=== PATIENT | male | born 1965 | race Caucasian/White ===

== ENCOUNTER 2017-11-10 13:18 | Inpatient (IN) ==
[2017-11-10] MEDS ORDERED: Nitroglycerin 1 INCH/GM PACKET TP ONE (13:23)
[2017-11-10] MEDS ORDERED: Aspirin 81 MG TAB.CHEW PO ONE (13:23)
--- NOTE | 2017-11-10 13:31 | Emergency Department Note ---
Disposition Clinical Impression: Atypical chest pain, Stable angina Disposition: Admitted As Inpatient Condition: Good Time of Disposition: 15:27 ( will admit) Chest Pain HPI - General Chief Complaint: ED Chest Pain Stated Complaint: chest pain Time Seen by Provider: 11/10/17 13:29 Source: patient, EMS Mode of arrival: EMS Limitations: no limitations Vital Signs Reviewed: Yes Nursing Notes Reviewed: Yes - History of Present Illness HPI Narrative: The 2-year-old male presented to the emergency department by EMS with complaints of pain localized to the left side of the chest. Patient had taken already 5 sublingual nitroglycerin prior to EMS arrival. He states that after he awakened today he began having substernal chest pain. Patient has known coronary disease and has had prior cardiac stent placement, done in [place] 2 years ago. Patient is on Plavix. He also has history of hypertension and hyperlipidemia. Pt complaint: chest pain Duration: intermittent Onset: during rest Pain Location: substernal, left chest Severity: severe Severity scale (1-10): 9 Quality: heaviness Pain Radiation: jaw/teeth Improves with: nothing Worsens with: exertion Associated symptoms: Reports: nausea Treatments prior to arrival chest pain: aspirin, nitroglycerin, oxygen - Related Data Home Medications Medication Instructions Recorded Confirmed Clopidogrel [Plavix] 75 mg PO DAILY 12/23/14 11/10/17 FLUoxetine HCl [Prozac] 20 mg PO DAILY 01/28/15 11/10/17 Metoprolol [Lopressor] 50 mg PO BID 01/28/15 11/10/17 Gabapentin [Neurontin] 800 mg PO TID 04/24/15 11/10/17 [place] Carbonate 300 mg PO HS 07/25/15 11/10/17 DULoxetine [Cymbalta] 60 mg PO DAILY 09/17/15 11/10/17 Furosemide [Lasix] 20 mg PO DAILY 10/02/15 11/10/17 ALPRAZolam [Xanax 0.5 MG Tablet] 0.5 mg PO Q6HR PRN 12/04/15 11/10/17 Albuterol Sulfate [Ventolin Hfa] 2 puff IH Q4H PRN 06/02/16 11/10/17 Docusate Sodium [Move It Along] 100 mg PO BID PRN 06/02/16 11/10/17 FentaNYL PATCH [Duragesic] 25 mcg TD Q72H 09/11/16 11/10/17 Menthol [Biofreeze] 1 appl TP BID PRN MDD apply to 09/11/16 11/04/16 shoulders Nitroglycerin [Nitrostat] 0.4 mg SL Q5M PRN 09/11/16 11/10/17 Fluticasone/Vilanterol [Breo 1 each IH HS 11/04/16 11/10/17 Ellipta 100-25 Mcg INH] Oxycodone HCl [Oxaydo] 10 mg PO Q6H PRN 11/04/16 11/10/17 Acetylcysteine [Nac] 500 mg PO Q6H 11/10/17 11/10/17 Diclofenac Sodium 100 gm TP BID PRN 11/10/17 11/10/17 Famotidine [Heartburn Prevention] 20 mg PO DAILY 11/10/17 11/10/17 Oxybutynin Chloride [Ditropan Xl] 5 mg PO DAILY 11/10/17 11/10/17 Previous Rx's Medication Instructions Recorded Atorvastatin [Lipitor] 40 mg PO HS #90 tablet 12/26/14 lamoTRIgine [Lamictal] 200 mg PO HS tablet 05/31/15 OxyCODONE/APAP 5/325 [Percocet 1 - 2 each PO Q6HR PRN #40 11/03/16 5/325 MG] Allergies Allergy/AdvReac Type Severity Reaction Status Date / Time simvastatin AdvReac See Verified 11/10/17 13:20 Comments Constitutional: Denies: fever, chills, weakness, weight change Eyes: Denies: eye pain, eye discharge, vision change ENT ED: Denies: ear pain, throat pain, dental pain, hearing loss, epistaxis, congestion, dysphagia Cardiovascular: Reports: chest pain. Denies: palpitations, dyspnea on exertion , edema, syncope Respiratory: Denies: cough, dyspnea, wheezes, hemoptysis, stridor Gastrointestinal: Denies: abdominal pain, nausea, vomiting, diarrhea, constipation, hematemesis, melena, hematochezia Genitourinary: Denies: urgency, dysuria, frequency, hematuria Musculoskeletal: Denies: back pain, neck pain, arthralgia, myalgia Integumentary: Denies: rash, abrasion, lesions Neurological: Denies: headache, weakness, numbness, paresthesias, confusion, abnormal gait, vertigo Psychiatric: Denies: anxiety, depression, suicidal thoughts, homicidal thoughts , auditory hallucinations, visual hallucinations Endocrine: Denies: fatigue Hematological/Lymphatic: Denies: easy bleeding, easy bruising Allergic/Immunologic: Denies: facial swelling, urticaria Chest Pain PMH - Past Medical History Medical history: Reports: asthma, atrial fibrillation, COPD, hyperlipidemia, hypertension, myocardial infarction, other Surgical history: Reports: other Psychiatric history: Reports: anxiety, depression, prior suicide attempt, previous psychiatric hospitalization Prior Cardiac Testing/Procedures: Cardiac Angiogram (12/[address] [facility] showing patent arteries and ejection fraction 55%) - Social History Smoking Status: Current every day smoker Alcohol use: Reports: none Drug use: Reports: none Physical Exam - General Limitations: no limitations General appearance: alert - Head Head exam: atraumatic, normocephalic, normal inspection - Eye Eye exam: Present: normal appearance, PERRL, EOMI - Expanded Eye Exam Pupils: Left: reactive - ENT ENT exam: normal exam, normal oropharynx, mucous membranes moist - Expanded ENT Exam External ear exam: Present: normal external inspection Mouth exam: Present: normal external inspection Teeth exam: Present: normal inspection Throat exam: Present: normal inspection - Neck Neck exam: Present: normal inspection, full ROM, trachea midline - Chest Chest inspection: Present: tenderness, other (Patient has some mild tenderness to palpation over the anterior chest wall on the left side) - Respiratory Respiratory exam: Present: normal lung sounds bilaterally - Cardiovascular Cardiovascular exam: Present: regular rate, normal rhythm, normal heart sounds - Abdominal Exam Abdominal exam: Present: soft, Non-Tender. Absent: tenderness, distention, guarding, rebound, rigidity - Extremities Exam Extremities exam: Present: normal inspection, full ROM. Absent: tenderness, pedal edema - Expanded Upper Extremity Exam Shoulder exam: Present: normal inspection, full ROM Arm exam: Present: normal inspection, full ROM Elbow exam: Present: normal inspection, full ROM Forearm/Wrist exam: Present: normal inspection, full ROM Hand exam: Present: normal inspection, full ROM Vascular exam: Normal: capillary refill, radial pulse - Expanded Lower Extremity Exam Hip/Pelvis exam: Present: normal inspection, full ROM Upper leg exam: Present: normal inspection, full ROM Knee exam: Present: normal inspection, full ROM Lower leg exam: Present: normal inspection, full ROM Ankle exam: Present: normal inspection, full ROM Foot/toe exam: Present: normal inspection, full ROM Neurovascular/Tendon exam: Absent: motor deficit, sensory deficit, tendon deficit - Back Exam Back exam: Present: normal inspection, full ROM. Absent: tenderness - Neurological Exam Neurological exam: Present: alert, oriented X3 - Expanded Neurological Exam Patient oriented to: Present: person, place, time Coma Scale Eye Opening: Spontaneous Coma Scale Motor Response: Obeys Commands Coma Scale Verbal Response: Oriented Coma Scale Total: 15 - Psychiatric Psychiatric exam: Present: normal affect, normal mood - Skin Skin exam: Present: warm, dry, intact, normal color Course Vital Signs Temperature 97.9 F 11/10/17 13:20 Pulse Rate 91 11/10/17 13:20 Respiratory Rate 18 11/10/17 13:20 Blood Pressure 121/66 11/10/17 13:20 O2 Sat by Pulse Oximetry 99 11/10/17 13:20 Temperature 97.9 F 11/10/17 13:20 Pulse Rate 60 11/10/17 14:50 Respiratory Rate 18 11/10/17 14:50 Blood Pressure 124/76 11/10/17 14:50 O2 Sat by Pulse Oximetry 99 11/10/17 14:50 Oxygen Delivery Oxygen Delivery Room Air Chest Pain - MDM Narrative Medical decision making narrative: Due to patient's cardiac history, we will admit the patient for overnight observation , laboratory including EKG and chest x-ray shows no acute process. - Differential Diagnosis Likely: fracture of rib, unstable angina pectoris, atypical chest pain, st elevation myocardial infraction, costalchondritis - Medical Records Medical records reviewed: Yes I reviewed the patient's medical records. - Lab Data Lab results reviewed: Yes I reviewed the patient's lab results. Result diagrams: 11/10/17 13:35 11/10/17 13:35 Lab Results 11/10/17 11/10/17 11/10/17 Range/Units 13:35 13:35 13:35 WBC (4.3-11.1) K/mcL RBC (4.19-5.50) M/mcL Hgb (12.9-16.9) g/dL Hct (37.5-50.1) % MCV (83.0-100.0) fL MCH (28.0-33.3) pg MCHC (31.6-35.5) g/dL RDW (11.5-14.5) % Plt Count (140-400) K/mcL MPV (9.4-12.4) fL Immature Gran % (0-4) % Seg Neutrophils % % Lymphocytes % % Monocytes % % Eosinophils % % Basophils % % Neutrophils # (1.6-8.9) K/mcL Lymphocytes # (0.6-4.6) K/mcL Monocytes # (0.0-1.3) K/mcL Eosinophils # (0.0-0.6) K/mcL Basophils # (0.0-0.2) K/mcL PT 14.9 H (9.4-12.1) Seconds INR 1.3 APTT 39.0 H (26.0-36.0) Seconds D-Dimer 743 H (0-500) ng/mLFEU Sodium (136-145) mEq/L Potassium (3.5-5.1) mEq/L Chloride (98-107) mEq/L Carbon Dioxide (23-29) mEq/L BUN (6-20) mg/dL Creatinine (0.70-1.30) mg/dL Est GFR ( Amer) (> 60) Est GFR (Non-Af Amer) (> 60) BUN/Creatinine Ratio (6-26) Glucose (70-105) mg/dL Calculated Osmolality (280-300) Calcium (8.6-10.3) mg/dL Total Bilirubin 0.5 (0.3-1.0) mg/dL Direct Bilirubin 0.1 (0.0-0.2) mg/dL Indirect Bilirubin 0.4 (0.0-1.2) mg/dL AST 14 (13-39) Units/L ALT 15 (7-52) Units/L Alkaline Phosphatase 133 H (34-104) Units/L Troponin I (< 0.04) ng/mL B-Natriuretic Peptide 83 (Less than 100) pg/mL Serum Total Protein 7.4 (6.4-8.9) g/dL Albumin 4.2 (3.5-5.7) g/dL Globulin 3.2 (2.4-3.5) g/dL Albumin/Globulin Ratio 1.3 (1.1-2.2) Amylase 39 (29-103) Units/L Lipase (11-82) Units/L 11/10/17 11/10/17 11/10/17 Range/Units 13:35 13:35 13:35 WBC 10.3 (4.3-11.1) K/mcL RBC 4.54 (4.19-5.50) M/mcL Hgb 15.5 (12.9-16.9) g/dL Hct 44.4 (37.5-50.1) % MCV 97.8 (83.0-100.0) fL MCH 34.1 H (28.0-33.3) pg MCHC 34.9 (31.6-35.5) g/dL RDW 12.9 (11.5-14.5) % Plt Count 207 (140-400) K/mcL MPV 9.0 L (9.4-12.4) fL Immature Gran % 0.3 (0-4) % Seg Neutrophils % 62.5 % Lymphocytes % 28.0 % Monocytes % 6.1 % Eosinophils % 2.7 % Basophils % 0.4 % Neutrophils # 6.4 (1.6-8.9) K/mcL Lymphocytes # 2.9 (0.6-4.6) K/mcL Monocytes # 0.6 (0.0-1.3) K/mcL Eosinophils # 0.3 (0.0-0.6) K/mcL Basophils # 0.0 (0.0-0.2) K/mcL PT (9.4-12.1) Seconds INR APTT (26.0-36.0) Seconds D-Dimer (0-500) ng/mLFEU Sodium 140 (136-145) mEq/L Potassium 3.8 (3.5-5.1) mEq/L Chloride 107 (98-107) mEq/L Carbon Dioxide 24 (23-29) mEq/L BUN 8 (6-20) mg/dL Creatinine 1.12 (0.70-1.30) mg/dL Est GFR ( Amer) > 60 (> 60) Est GFR (Non-Af Amer) > 60 (> 60) BUN/Creatinine Ratio 7 (6-26) Glucose 98 (70-105) mg/dL Calculated Osmolality 288 (280-300) Calcium 9.8 (8.6-10.3) mg/dL Total Bilirubin (0.3-1.0) mg/dL Direct Bilirubin (0.0-0.2) mg/dL Indirect Bilirubin (0.0-1.2) mg/dL AST (13-39) Units/L ALT (7-52) Units/L Alkaline Phosphatase (34-104) Units/L Troponin I < 0.03 (< 0.04) ng/mL B-Natriuretic Peptide (Less than 100) pg/mL Serum Total Protein (6.4-8.9) g/dL Albumin (3.5-5.7) g/dL Globulin (2.4-3.5) g/dL Albumin/Globulin Ratio (1.1-2.2) Amylase (29-103) Units/L Lipase 50 (11-82) Units/L - Radiology Data Radiology results reviewed: Yes I reviewed the patient's radiology results. Chest x-ray per radiology reading showed early pulmonary edema CTA of the chest per radiology reading shows no acute process. Since patient's BNP level is normal I suspect that the area of scarring is most likely related the patient's long-standing history of COPD and not pulmonary edema or CHF. - EKG Data EKG attestation: Yes I reviewed and interpreted this EKG. EKG results narrative: EKG is a normal sinus rhythm EKG with minimal ST-T wave flattening across leads V2 and V3 EKG shows normal: sinus rhythm Rate: normal Rhythm: NSR [place]/QRS: normal
[2017-11-10 13:49] LABS: Basophils % 0.4 %; Eosinophils # 0.3 K/mcL (0.0-0.6); Eosinophils % 2.7 %; Hematocrit 44.4 % (37.5-50.1); Hemoglobin 15.5 g/dL (12.9-16.9); Immature Granulocytes % 0.3 % (0-4); Lymphocytes # 2.9 K/mcL (0.6-4.6); Mean Corpuscular HGB Conc 34.9 g/dL (31.6-35.5); Mean Corpuscular Hemoglobin 34.1 pg (28.0-33.3); Mean Corpuscular Volume 97.8 fL (83.0-100.0); Monocytes # 0.6 K/mcL (0.0-1.3); Monocytes % 6.1 %; Neutrophils # 6.4 K/mcL (1.6-8.9); Platelet Count 207 K/mcL (140-400); Red Blood Count 4.54 M/mcL (4.19-5.50); Red Cell Distribution Width 12.9 % (11.5-14.5); Segmented Neutrophils % 62.5 %
[2017-11-10 13:55] LABS: INR 1.3; Prothrombin Time 14.9 Seconds (9.4-12.1)
[2017-11-10] MEDS ORDERED: Isovue-370 500 ML INFUS..BTL IV ONE ×2 (13:59→16:03)
[2017-11-10 14:05] LABS: Albumin 4.2 g/dL (3.5-5.7); Albumin/Globulin Ratio 1.3 (1.1-2.2); Bilirubin,Direct 0.1 mg/dL (0.0-0.2); Bilirubin,Indirect 0.4 mg/dL (0.0-1.2); Bilirubin,Total 0.5 mg/dL (0.3-1.0); Globulin 3.2 g/dL (2.4-3.5); Total Protein 7.4 g/dL (6.4-8.9)
[2017-11-10 14:06] LABS: BUN/Creatinine Ratio 7 (6-26); Blood Urea Nitrogen 8 mg/dL (6-20); Calcium 9.8 mg/dL (8.6-10.3); Carbon Dioxide 24 mEq/L (23-29); Chloride 107 mEq/L (98-107); Glucose 98 mg/dL (70-105); Osmolality,Calculated 288 (280-300); Potassium 3.8 mEq/L (3.5-5.1); Sodium 140 mEq/L (136-145); Troponin I < 0.03 ng/mL (< 0.04); eGFR For African Americans > 60 (> 60); eGFR For Non-African Americans > 60 (> 60)
[2017-11-10] MEDS ORDERED: Nitroglycerin 0.4 MG TAB.SUBL SL PRN (16:03)
[2017-11-10] MEDS ORDERED: BIOFREEZE TP PRN (16:03)
[2017-11-10] MEDS ORDERED: *HR* FentaNYL PATCH 25 MCG PATCH TD SCH (16:03)
[2017-11-10] MEDS ORDERED: DICLOFENAC SODIUM 100 GM TP PRN (16:03)
[2017-11-10] MEDS: *HR* OxyCODONE Immed Rel 5 MG TABLET PO PRN (16:57)
--- NOTE | 2017-11-10 17:09 | Electrocardiograph Report ---
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
[2017-11-10] MEDS ORDERED: (Fluticasone/Vilanterol [Breo Ellipta 100-25 Mcg Inh] IH SCH (21:00)
[2017-11-10] MEDS ORDERED: lamoTRIgine 100 MG TABLET PO SCH (21:00)
[2017-11-10] MEDS ORDERED: Lithium Carbonate 300 MG CAPSULE PO SCH (21:00)
[2017-11-10] MEDS: Gabapentin 400 MG CAPSULE PO SCH (21:47)
[2017-11-11] MEDS: ALPRAZolam 0.5 MG TABLET PO PRN ×2 (00:48→09:08)
[2017-11-11] MEDS: *HR* OxyCODONE Immed Rel 5 MG TABLET PO PRN ×2 (00:49→09:01)
[2017-11-11] MEDS ORDERED: Famotidine 20 MG TABLET PO SCH (09:00)
[2017-11-11] MEDS ORDERED: FLUoxetine 20 MG CAPSULE PO SCH (09:00)
[2017-11-11] MEDS ORDERED: Furosemide 20 MG TABLET PO SCH (09:00)
[2017-11-11] MEDS: Gabapentin 400 MG CAPSULE PO SCH (09:02)
[2017-11-11 10:29] VITALS: BP 94/53
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
--- NOTE | 2017-11-11 12:12 | Discharge Summary ---
Date of Encounter: 11/11/17 Time of Encounter: 11:30 - Discharge Diagnosis (1) Atypical chest pain Priority: Primary Status: Acute Hospital course: Mr. Coles is a 52 year old male who states he awakened approximately 0200 the morning of November 10 with a sharp chest pain and heaviness sensation in his left arm. When it did not resolve he took a sublingual nitroglycerin without relief. He took 4 additional nitroglycerin pills without relief. His home health nurse arrived and learned of his situation and recommended he come to emergency room. He was evaluated in emergency room and admitted to [facility] for ongoing care needs. Initial orders were written by the emergency room physician. I saw him on November 11 and performed a history physical and discharge. Repeat cardiac enzymes showed no evidence of myocardial damage. When I saw him I felt the pain was likely costosternal joint origin. I recommended he use OTC NSAIDs. He felt stable for discharge home which I felt was reasonable. I encouraged him to become a nonsmoker. He will follow with his PCP Manisha Zayas CNP within 1 week. - Time Spent with Patient Total time spent providing and/or coordinating discharge services: - Discharge Medications Home Medications: Clopidogrel [Plavix] 75 mg PO DAILY 12/23/14 [History] Atorvastatin [Lipitor] 40 mg PO HS #90 tablet 12/26/14 [Rx] FLUoxetine HCl [Prozac] 20 mg PO DAILY 01/28/15 [History] Metoprolol [Lopressor] 50 mg PO BID 01/28/15 [History] Gabapentin [Neurontin] 800 mg PO TID 04/24/15 [History] lamoTRIgine [Lamictal] 200 mg PO HS tablet 05/31/15 [Rx] [place] Carbonate 300 mg PO HS 07/25/15 [History] DULoxetine [Cymbalta] 60 mg PO DAILY 09/17/15 [History] Furosemide [Lasix] 20 mg PO DAILY 10/02/15 [History] ALPRAZolam [Xanax 0.5 MG Tablet] 0.5 mg PO Q6HR PRN 12/04/15 [History] Albuterol Sulfate [Ventolin Hfa] 2 puff IH Q4H PRN 06/02/16 [History] Docusate Sodium [Move It Along] 100 mg PO BID PRN 06/02/16 [History] FentaNYL PATCH [Duragesic] 25 mcg TD Q72H 09/11/16 [History] Menthol [Biofreeze] 1 appl TP BID PRN MDD apply to shoulders 09/11/16 [History] Nitroglycerin [Nitrostat] 0.4 mg SL Q5M PRN 09/11/16 [History] OxyCODONE/APAP 5/325 [Percocet 5/325 MG] 1 - 2 each PO Q6HR PRN #40 11/03/16 [Rx ] Fluticasone/Vilanterol [Breo Ellipta 100-25 Mcg INH] 1 each IH HS 11/04/16 [ History] Oxycodone HCl [Oxaydo] 10 mg PO Q6H PRN 11/04/16 [History] Acetylcysteine [Nac] 500 mg PO Q6H 11/10/17 [History] Diclofenac Sodium 100 gm TP BID PRN 11/10/17 [History] Famotidine [Heartburn Prevention] 20 mg PO DAILY 11/10/17 [History] Oxybutynin Chloride [Ditropan Xl] 5 mg PO DAILY 11/10/17 [History] Allergies/Adverse Reactions: 3 Allergy/AdvReac Type Severity Reaction Status Date / Time simvastatin AdvReac See Verified 11/10/17 13:20 Comments Date of admission: 11/10/17 15:59 Primary care physician: Manisha Zayas CNP Consults: 11/10/17 16:25 Consult to Maintenance Painter [CONS] Routine Reason for SW Consult: Pt states he has home health care services. Unsure of the provider. - Constitutional Vitals: Temp Pulse Resp BP Pulse Ox 98.2 F 56 20 94/53 95 11/11/17 10:27 11/11/17 10:27 11/11/17 10:27 11/11/17 10:27 11/11/17 10:27 - Patient Status Disposition: Home Health Service Condition: Good Overall status at discharge: patient is progressing back to baseline - Discharge Instructions Follow Up With: Manisha Zayas CNP [Primary Care Provider] - 1 week - Diet and Activity Activity: resume usual activities as tolerated Diet: advance to your usual diet
--- NOTE | 2017-11-11 12:13 | Physician Discharge Referral ---
Home Health/Hosp Referral Info Transfer to: Home Health Attending Provider: Jarod Provider in Charge Post Discharge: PCP Cynthia) - Diagnosis (1) Atypical chest pain Priority: Primary Status: Acute - Respiratory Orders Oxygen / L per min (Oxygen and BiPAP as previously ordered.) Smoking Cessation: Smoking cessation has been advised. For more information, call the [place] Tobacco Quit Line at 4-103-SYBB-NOW. - Diet/Nutrition Diet/Nutrition Orders: Regular - Services Needed Following services are medically necessary services: Nursing, Home Health Aide, Physical Therapy, Occupational Therapy - Transfer Medications Home Medications: Clopidogrel [Plavix] 75 mg PO DAILY 12/23/14 [History] Atorvastatin [Lipitor] 40 mg PO HS #90 tablet 12/26/14 [Rx] FLUoxetine HCl [Prozac] 20 mg PO DAILY 01/28/15 [History] Metoprolol [Lopressor] 50 mg PO BID 01/28/15 [History] Gabapentin [Neurontin] 800 mg PO TID 04/24/15 [History] lamoTRIgine [Lamictal] 200 mg PO HS tablet 05/31/15 [Rx] [place] Carbonate 300 mg PO HS 07/25/15 [History] DULoxetine [Cymbalta] 60 mg PO DAILY 09/17/15 [History] Furosemide [Lasix] 20 mg PO DAILY 10/02/15 [History] ALPRAZolam [Xanax 0.5 MG Tablet] 0.5 mg PO Q6HR PRN 12/04/15 [History] Albuterol Sulfate [Ventolin Hfa] 2 puff IH Q4H PRN 06/02/16 [History] Docusate Sodium [Move It Along] 100 mg PO BID PRN 06/02/16 [History] FentaNYL PATCH [Duragesic] 25 mcg TD Q72H 09/11/16 [History] Menthol [Biofreeze] 1 appl TP BID PRN MDD apply to shoulders 09/11/16 [History] Nitroglycerin [Nitrostat] 0.4 mg SL Q5M PRN 09/11/16 [History] OxyCODONE/APAP 5/325 [Percocet 5/325 MG] 1 - 2 each PO Q6HR PRN #40 11/03/16 [Rx ] Fluticasone/Vilanterol [Breo Ellipta 100-25 Mcg INH] 1 each IH HS 11/04/16 [ History] Oxycodone HCl [Oxaydo] 10 mg PO Q6H PRN 11/04/16 [History] Acetylcysteine [Nac] 500 mg PO Q6H 11/10/17 [History] Diclofenac Sodium 100 gm TP BID PRN 11/10/17 [History] Famotidine [Heartburn Prevention] 20 mg PO DAILY 11/10/17 [History] Oxybutynin Chloride [Ditropan Xl] 5 mg PO DAILY 11/10/17 [History] Allergies/Adverse Reactions: 3 Allergy/AdvReac Type Severity Reaction Status Date / Time simvastatin AdvReac See Verified 11/10/17 13:20 Comments Certification: Further, I certify that my clinical findings support that this patient is homebound (i.e. absences from home require considerable and taxing effort and are for medical reasons or congregational services or infrequently or short duration when for other reasons) because: Homebound Reason: Leaving home requires considerable and taxing effort due to condition (COPD with hypoxemia, impaired mobility from DJD.) Attestation: My signature below is to certify that this patient is under my care and that I, or nurse practitioner, or a physician's surveyor instrument assistant working with me, has a face-to -face encounter with this patient.
== END 2017-11-11 12:35 | disposition home health service (06) | DRG 203 ==
LOC: INPPIK 13:18 → EMEROOPIK 13:18 → INPPIK 15:50 → OBSVTOIN 15:59
PROVIDERS: ADMIT Internal Medicine; ATTEND Internal Medicine

== ENCOUNTER 2018-09-13 18:47 | Observation (INO) ==
--- NOTE | 2018-09-13 19:04 | Emergency Department Note ---
Disposition Clinical Impression: Chest pain, Tobacco use, COPD (chronic obstructive pulmonary disease), ETOHism Disposition: Admitted As Inpatient Condition: Fair Time of Disposition: 20:30 Chest Pain HPI - General Chief Complaint: ED Chest Pain Stated Complaint: chest pain Time Seen by Provider: 09/13/18 18:51 Source: patient Mode of arrival: ambulatory Limitations: no limitations Vital Signs Reviewed: Yes Nursing Notes Reviewed: Yes - History of Present Illness HPI Narrative: 52-year-old man who is having midsternal chest pain takes nitroglycerin at home EMS states that there was nitroglycerin tabs distributed all over the house but also boxes of Narcan and multiple bottles of alcohol laying around the house. Patient states that his having midsternal chest pain with radiation up into the chest but denies it radiates into the jaw or into the arm no nausea vomiting or diaphoresis associated with it. Denies any blurred vision double vision loss vision any syncope associated with it. Denies any this recent weight gain or weight loss. Patient states he did have relief when he took his nitroglycerin at home but it did not burn or sting underneath the tongue. As result patient was brought to the emergency room for further evaluation. Systems reviewed and are otherwise negative Pt complaint: chest pain Onset (ago): hour(s) (2) Duration: constant Onset: during rest, associated with drug use (? Multiple boxes of Narcan found in the home also alcohol use) Pain Location: substernal, left chest Severity: moderate Severity scale (1-10): 7 Quality: tightness Pain Radiation: none Improves with: nothing Worsens with: nothing Associated symptoms: Reports: nausea. Denies: vomiting, diaphoresis, dyspnea, sense of impending doom, syncope, palpitations, fever, cough, leg swelling Treatments prior to arrival chest pain: aspirin, nitroglycerin - Related Data Home Medications Medication Instructions Recorded Confirmed Clopidogrel [Plavix] 75 mg PO DAILY 12/23/14 09/13/18 FLUoxetine HCl [Prozac] 10 mg PO DAILY 01/28/15 09/13/18 Metoprolol [Lopressor] 50 mg PO BID 01/28/15 09/13/18 Gabapentin [Neurontin] 800 mg PO TID 04/24/15 09/13/18 [place] Carbonate 300 mg PO HS 07/25/15 09/13/18 DULoxetine [Cymbalta] 60 mg PO DAILY 09/17/15 09/13/18 Furosemide [Lasix] 20 mg PO DAILY 10/02/15 09/13/18 ALPRAZolam [Xanax 0.5 MG Tablet] 0.5 mg PO Q6HR PRN 12/04/15 09/13/18 Albuterol Sulfate [Ventolin Hfa] 2 puff IH Q4H PRN 06/02/16 09/13/18 FentaNYL PATCH [Duragesic] 25 mcg TD Q72H 09/11/16 09/13/18 Fluticasone/Vilanterol [Breo 1 each IH HS 11/04/16 09/13/18 Ellipta 100-25 Mcg INH] Oxycodone HCl [Oxaydo] 20 mg PO Q6H PRN 11/04/16 09/13/18 Acetylcysteine [Nac] 600 mg PO TID 11/10/17 09/13/18 Famotidine [Heartburn Prevention] 20 mg PO DAILY 11/10/17 09/13/18 Oxybutynin Chloride [Ditropan Xl] 5 mg PO BID 11/10/17 09/13/18 Fluticasone/Vilanterol [Breo 1 each IH QAM 11/30/17 09/13/18 Ellipta 100-25 Mcg INH] Nicotine [Nicotrol] 10 mg IH PRN PRN MDD 16 11/30/17 09/13/18 Rivaroxaban [Xarelto] 20 mg PO QAM 11/30/17 09/13/18 Tiotropium [Spiriva] 18 mcg IH BID 11/30/17 09/13/18 Previous Rx's Medication Instructions Recorded Atorvastatin [Lipitor] 40 mg PO HS #90 tablet 12/26/14 lamoTRIgine [Lamictal] 200 mg PO HS tablet 05/31/15 Allergies Allergy/AdvReac Type Severity Reaction Status Date / Time simvastatin AdvReac See Verified 11/10/17 13:20 Comments All systems ED: reviewed and negative except as stated. Review of Systems: As Per HPI Constitutional: Denies: fever, chills, weakness Eyes: Denies: eye pain, eye discharge ENT ED: Denies: ear pain, throat pain Cardiovascular: Reports: chest pain Respiratory: Denies: cough, dyspnea Gastrointestinal: Denies: abdominal pain, nausea Genitourinary: Denies: urgency, dysuria, frequency Musculoskeletal: Denies: back pain Integumentary: Denies: rash, abrasion Neurological: Reports: headache Psychiatric: Denies: anxiety Chest Pain PMH - Past Medical History Medical history: Reports: asthma, atrial fibrillation, COPD, hyperlipidemia, hypertension, myocardial infarction, other Surgical history: Reports: other Psychiatric history: Reports: anxiety, depression, prior suicide attempt, previous psychiatric hospitalization Prior Cardiac Testing/Procedures: Cardiac Angiogram (12/27 at [facility] showing patent arteries and ejection fraction 55%) - Social History Smoking Status: Current every day smoker Alcohol use: Reports: none Drug use: Reports: none Physical Exam - General Limitations: no limitations General appearance: alert, in no apparent distress, cachectic - Head Head exam: atraumatic, normocephalic, normal inspection - Eye Eye exam: Present: normal appearance, PERRL, EOMI - ENT ENT exam: normal exam, normal oropharynx, mucous membranes moist, TM's normal bilaterally, normal external ear exam - Neck Neck exam: Present: normal inspection, full ROM, trachea midline - Chest Chest inspection: Present: normal inspection, symmetric chest wall rise - Respiratory Respiratory exam: Present: normal lung sounds bilaterally - Cardiovascular Cardiovascular exam: Present: regular rate, normal rhythm, normal heart sounds - Abdominal Exam Abdominal exam: Present: soft, Non-Tender, normal bowel sounds. Absent: mass, pulsatile mass - Expanded Upper Extremity Exam Shoulder exam: Present: normal inspection, full ROM Arm exam: Present: normal inspection, full ROM Elbow exam: Present: normal inspection, full ROM Forearm/Wrist exam: Present: normal inspection, full ROM Hand exam: Present: normal inspection, full ROM Vascular exam: Normal: capillary refill, radial pulse - Expanded Lower Extremity Exam Hip/Pelvis exam: Present: normal inspection, full ROM Upper leg exam: Present: normal inspection, full ROM Knee exam: Present: normal inspection, full ROM Lower leg exam: Present: normal inspection, full ROM Ankle exam: Present: normal inspection, full ROM Foot/toe exam: Present: normal inspection, full ROM Neurovascular/Tendon exam: Absent: motor deficit, sensory deficit, tendon deficit Gait: observed and normal - Back Exam Back exam: Present: normal inspection, full ROM. Absent: muscle spasm - Neurological Exam Neurological exam: Present: alert, oriented X3, CN II-XII intact, normal gait - Psychiatric Psychiatric exam: Present: normal affect, normal mood - Skin Skin exam: Present: warm, dry, intact, normal color Course Course Narrative: Patient was seen and evaluated examinations performed patient rested comfortably she was given a GI cocktail which seemed to ease his discomfort he states last heart catheter was about 5 years ago with history of heart disease as result he will be admitted for observation I did talk to him about his alcohol consumption because he said he only had one sip of moonshine this morning and still had an alcoholic greater than 192 at this time as a result this may be reflux component patient is transferred to [facility] Vital Signs Temperature 98.4 F 09/13/18 18:51 Pulse Rate 86 09/13/18 18:51 Respiratory Rate 18 09/13/18 18:51 Blood Pressure 100/76 09/13/18 18:51 O2 Sat by Pulse Oximetry 97 09/13/18 18:51 Temperature 98.5 F 09/13/18 21:08 Pulse Rate 86 09/13/18 21:08 Respiratory Rate 16 09/13/18 21:08 Blood Pressure 108/70 09/13/18 21:08 O2 Sat by Pulse Oximetry 97 09/13/18 21:08 Oxygen Delivery Oxygen Delivery Nasal Cannula Chest Pain - Differential Diagnosis Likely: chest pain - Medical Records Medical records reviewed: Yes I reviewed the patient's medical records. - Lab Data Lab results reviewed: Yes I reviewed the patient's lab results. Result diagrams: 09/13/18 19:03 09/13/18 19:03 Lab Results 09/13/18 09/13/18 09/13/18 Range/Units 19:03 19:03 19:03 WBC 10.2 (4.3-11.1) K/mcL RBC 4.22 (4.19-5.50) M/mcL Hgb 14.3 (12.9-16.9) g/dL Hct 40.2 (37.5-50.1) % MCV 95.3 (83.0-100.0) fL MCH 33.9 H (28.0-33.3) pg MCHC 35.6 H (31.6-35.5) g/dL RDW 13.3 (11.5-14.5) % Plt Count 210 (140-400) K/mcL MPV 8.5 L (9.4-12.4) fL Immature Gran % 0.4 (0-4) % Seg Neutrophils % 56.3 % Lymphocytes % 33.5 % Monocytes % 5.6 % Eosinophils % 3.6 % Basophils % 0.6 % Neutrophils # 5.7 (1.6-8.9) K/mcL Lymphocytes # 3.4 (0.6-4.6) K/mcL Monocytes # 0.6 (0.0-1.3) K/mcL Eosinophils # 0.4 (0.0-0.6) K/mcL Basophils # 0.1 (0.0-0.2) K/mcL PT 13.9 H (9.4-12.1) Seconds INR 1.2 APTT 32.2 (26.0-36.0) Seconds Sodium 139 (136-145) mEq/L Potassium 3.7 (3.5-5.1) mEq/L Chloride 105 (98-107) mEq/L Carbon Dioxide 22 L (23-29) mEq/L BUN 9 (6-20) mg/dL Creatinine 1.22 (0.70-1.30) mg/dL Est GFR ( Amer) > 60 (> 60) Est GFR (Non-Af Amer) > 60 (> 60) BUN/Creatinine Ratio 7 (6-26) Glucose 150 H (70-105) mg/dL Calculated Osmolality 290 (280-300) Calcium 8.5 L (8.6-10.3) mg/dL Troponin I < 0.03 (< 0.04) ng/mL Ethyl Alcohol (Less than 10) mg/dL 09/13/18 Range/Units 19:03 WBC (4.3-11.1) K/mcL RBC (4.19-5.50) M/mcL Hgb (12.9-16.9) g/dL Hct (37.5-50.1) % MCV (83.0-100.0) fL MCH (28.0-33.3) pg MCHC (31.6-35.5) g/dL RDW (11.5-14.5) % Plt Count (140-400) K/mcL MPV (9.4-12.4) fL Immature Gran % (0-4) % Seg Neutrophils % % Lymphocytes % % Monocytes % % Eosinophils % % Basophils % % Neutrophils # (1.6-8.9) K/mcL Lymphocytes # (0.6-4.6) K/mcL Monocytes # (0.0-1.3) K/mcL Eosinophils # (0.0-0.6) K/mcL Basophils # (0.0-0.2) K/mcL PT (9.4-12.1) Seconds INR APTT (26.0-36.0) Seconds Sodium (136-145) mEq/L Potassium (3.5-5.1) mEq/L Chloride (98-107) mEq/L Carbon Dioxide (23-29) mEq/L BUN (6-20) mg/dL Creatinine (0.70-1.30) mg/dL Est GFR ( Amer) (> 60) Est GFR (Non-Af Amer) (> 60) BUN/Creatinine Ratio (6-26) Glucose (70-105) mg/dL Calculated Osmolality (280-300) Calcium (8.6-10.3) mg/dL Troponin I (< 0.04) ng/mL Ethyl Alcohol 192 H (Less than 10) mg/dL - Radiology Data Radiology results reviewed: Yes I reviewed the patient's radiology results. ITS Impressions Chest X-Ray 09/13/18 19:00 IMPRESSION: No evidence of acute cardiopulmonary disease. D/ / Jose Dodge MD / Jose Dodge MD Interpreting Provider: Jose Dodge MD - EKG Data EKG attestation: Yes I reviewed and interpreted this EKG. EKG results narrative: Sinus rhythm nonspecific T-wave changes rate of 89 SC 1472 is 86 QT 369 axis LXXX is compared to the EMS which is similar with similar appearance with this one being done at 1830 noting sinus rhythm inferior abnormality similar to what we had had with a rate of 96 QRS 84 QT 342 axis LXXVI SC 164 Heart Score - Score History: Slightly Suspicious EKG: Non Specific repolarisation Disturbance Age: 45-65 Risk Factors: Equal/Greater than 3 risk factor or history of atherosclerotic disease Troponin: Less than normal limit HEART Score Total: 4 Critical Care Time Critical Care Time: No
[2018-09-13 19:09] LABS: Basophils # 0.1 K/mcL (0.0-0.2); Basophils % 0.6 %; Eosinophils # 0.4 K/mcL (0.0-0.6); Eosinophils % 3.6 %; Hematocrit 40.2 % (37.5-50.1); Hemoglobin 14.3 g/dL (12.9-16.9); Immature Granulocytes % 0.4 % (0-4); Lymphocytes # 3.4 K/mcL (0.6-4.6); Lymphocytes % 33.5 %; Mean Corpuscular HGB Conc 35.6 g/dL (31.6-35.5); Mean Corpuscular Hemoglobin 33.9 pg (28.0-33.3); Mean Corpuscular Volume 95.3 fL (83.0-100.0); Mean Platelet Volume 8.5 fL (9.4-12.4); Monocytes # 0.6 K/mcL (0.0-1.3); Monocytes % 5.6 %; Neutrophils # 5.7 K/mcL (1.6-8.9); Platelet Count 210 K/mcL (140-400); Red Blood Count 4.22 M/mcL (4.19-5.50); Red Cell Distribution Width 13.3 % (11.5-14.5); Segmented Neutrophils % 56.3 %; White Blood Count 10.2 K/mcL (4.3-11.1)
[2018-09-13 19:17] LABS: INR 1.2; Prothrombin Time 13.9 Seconds (9.4-12.1)
[2018-09-13 19:20] LABS: Activated Partial Thrombo Time 32.2 Seconds (26.0-36.0)
[2018-09-13 19:24] LABS: BUN/Creatinine Ratio 7 (6-26); Blood Urea Nitrogen 9 mg/dL (6-20); Calcium 8.5 mg/dL (8.6-10.3); Carbon Dioxide 22 mEq/L (23-29); Chloride 105 mEq/L (98-107); Glucose 150 mg/dL (70-105); Osmolality,Calculated 290 (280-300); Potassium 3.7 mEq/L (3.5-5.1); Sodium 139 mEq/L (136-145); eGFR For African Americans > 60 (> 60); eGFR For Non-African Americans > 60 (> 60)
[2018-09-13 19:29] LABS: Troponin I < 0.03 ng/mL (< 0.04)
[2018-09-13] MEDS ORDERED: GI Cocktail 40 ML EACH PO ONE (19:56)
[2018-09-13] MEDS ORDERED: NICOTINE 10 MG IH PRN (21:01)
[2018-09-13] MEDS ORDERED: *HR* Acetylcysteine 20% 600 MG/3 ML ORAL SYRINGE PO SCH (21:01)
[2018-09-13] MEDS ORDERED: Naloxone 0.4 MG/ML INJ IVP PRN (21:01)
[2018-09-13] MEDS ORDERED: Ondansetron ODT 4 MG TAB.RAPDIS SL PRN (21:01)
[2018-09-13] MEDS ORDERED: Lithium Carbonate 300 MG CAPSULE PO SCH (21:01)
[2018-09-13] MEDS ORDERED: *HR* FentaNYL PATCH 25 MCG PATCH TD SCH (21:01)
[2018-09-13] MEDS ORDERED: lamoTRIgine 100 MG TABLET PO SCH (21:01)
[2018-09-13] MEDS ORDERED: ALPRAZolam 0.5 MG TABLET PO PRN (21:01)
[2018-09-13] MEDS: Gabapentin 400 MG CAPSULE PO SCH (22:56)
[2018-09-13] MEDS: *HR* OxyCODONE Immed Rel 5 MG TABLET PO PRN (23:05)
[2018-09-13] MEDS: Nicotine 21 MG PATCH.TD24 TD SCH (23:06)
[2018-09-14] MEDS: *HR* OxyCODONE Immed Rel 5 MG TABLET PO PRN ×2 (05:35→11:25)
[2018-09-14] MEDS ORDERED: Famotidine 20 MG TABLET PO SCH (06:30)
[2018-09-14 06:55] VITALS: BP 108/64
[2018-09-14] MEDS: Gabapentin 400 MG CAPSULE PO SCH (07:58)
[2018-09-14] MEDS: Nicotine 21 MG PATCH.TD24 TD SCH (07:59)
[2018-09-14] MEDS ORDERED: FLUoxetine 20 MG CAPSULE PO SCH (09:00)
[2018-09-14] MEDS ORDERED: Furosemide 20 MG TABLET PO SCH (09:00)
[2018-09-14] MEDS ORDERED: *HR* Rivaroxaban 10 MG TABLET PO SCH (09:00)
[2018-09-14] MEDS ORDERED: NON-FORMULARY MEDICATION 1 EACH EACH (Fluticasone/Vilanterol [Breo Ellipta 100-25 Mcg Inh] IH SCH (09:00)
[2018-09-14] MEDS ORDERED: Tiotropium 18 MCG inhalation IH SCH (10:00)
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
[2018-09-14] MEDS ORDERED: FLUoxetine HCl 10 MG CAPSULE PO SCH (12:15)
--- NOTE | 2018-09-14 12:22 | Discharge Summary ---
Orders not resulted at time of discharge: Pending orders 09/14/18 13:00 Troponin I Q6H 09/15/18 03:01 Troponin I Q6H Date of Encounter: 09/14/18 Time of Encounter: 11:35 - Discharge Diagnosis (1) Chest pain Priority: Primary Status: Acute Qualifiers: Chest pain type: precordial pain Qualified Code(s): R07.2 - Precordial pain (2) Alcohol intoxication Priority: Secondary Status: Acute Qualifiers: Complication of substance-induced condition: uncomplicated Qualified Code(s): F10.920 - Alcohol use, unspecified with intoxication, uncomplicated Hospital course: Mr. Coles is a 52 year old male who came to emergency room stating he had onset of sharp chest pain while attempting a transfer to his wheelchair in his apartment. He reports the pain radiated to his left arm. He did not succeed in the transfer and slid to the floor without injury. He took 4 nitroglycerin pills sequentially without relief. He called EMS and was brought to emergency room. He was evaluated and admitted to [facility] for ongoing care needs. Initial orders were written by the emergency room physician. I saw him on September 14 and performed the history physical and discharge. Repeat cardiac enzymes showed no evidence of myocardial damage. When I saw him I felt the pain was likely be of costosternal joint origin. I felt he was stable for discharge home. He will be prescribed Naprosyn 500 mg to take twice a day prn pain. He will follow with his PCP Dr. Zhou within 1 week. I encouraged him to discontinue use of tobacco and alcohol. - Time Spent with Patient Total time spent providing and/or coordinating discharge services: - Discharge Medications Prescriptions: New Naproxen [Naprosyn] 500 mg PO BID #10 tablet Continued Clopidogrel [Plavix] 75 mg PO DAILY Atorvastatin [Lipitor] 40 mg PO HS #90 tablet Furosemide [Lasix] 20 mg PO DAILY FentaNYL PATCH [Duragesic] 25 mcg TD Q72H Fluticasone/Vilanterol [Breo Ellipta 100-25 Mcg INH] 1 each IH HS Oxycodone HCl [Oxaydo] 20 mg PO Q6H PRN PRN Reason: Mild To Moderate Pain Metoprolol [Lopressor] 50 mg PO BID FLUoxetine HCl [Prozac] 10 mg PO DAILY Gabapentin [Neurontin] 800 mg PO TID lamoTRIgine [Lamictal] 200 mg PO HS tablet [place] Carbonate 300 mg PO HS DULoxetine [Cymbalta] 60 mg PO DAILY ALPRAZolam [Xanax 0.5 MG Tablet] 0.5 mg PO Q6HR PRN PRN Reason: Anxiety Albuterol Sulfate [Ventolin Hfa] 2 puff IH Q4H PRN PRN Reason: Dyspnea Oxybutynin Chloride [Ditropan Xl] 5 mg PO BID Famotidine [Heartburn Prevention] 20 mg PO DAILY Acetylcysteine [Nac] 600 mg PO TID Rivaroxaban [Xarelto] 20 mg PO QAM Tiotropium [Spiriva] 18 mcg IH BID Nicotine [Nicotrol] 10 mg IH PRN PRN MDD 16 PRN Reason: See Comments Fluticasone/Vilanterol [Breo Ellipta 100-25 Mcg INH] 1 each IH QAM Home Medications: Clopidogrel [Plavix] 75 mg PO DAILY 12/23/14 [History] Atorvastatin [Lipitor] 40 mg PO HS #90 tablet 12/26/14 [Rx] FLUoxetine HCl [Prozac] 10 mg PO DAILY 01/28/15 [History] Metoprolol [Lopressor] 50 mg PO BID 01/28/15 [History] Gabapentin [Neurontin] 800 mg PO TID 04/24/15 [History] lamoTRIgine [Lamictal] 200 mg PO HS tablet 05/31/15 [Rx] [place] Carbon[place] 300 mg PO HS 07/25/15 [History] DULoxetine [Cymbalta] 60 mg PO DAILY 09/17/15 [History] Furosemide [Lasix] 20 mg PO DAILY 10/02/15 [History] ALPRAZolam [Xanax 0.5 MG Tablet] 0.5 mg PO Q6HR PRN 12/04/15 [History] Albuterol Sulfate [Ventolin Hfa] 2 puff IH Q4H PRN 06/02/16 [History] FentaNYL PATCH [Duragesic] 25 mcg TD Q72H 09/11/16 [History] Fluticasone/Vilanterol [Breo Ellipta 100-25 Mcg INH] 1 each IH HS 11/04/16 [History] Oxycodone HCl [Oxaydo] 20 mg PO Q6H PRN 11/04/16 [History] Acetylcysteine [Nac] 600 mg PO TID 11/10/17 [History] Famotidine [Heartburn Prevention] 20 mg PO DAILY 11/10/17 [History] Oxybutynin Chloride [Ditropan Xl] 5 mg PO BID 11/10/17 [History] Fluticasone/Vilanterol [Breo Ellipta 100-25 Mcg INH] 1 each IH QAM 11/30/17 [History] Nicotine [Nicotrol] 10 mg IH PRN PRN MDD 16 11/30/17 [History] Rivaroxaban [Xarelto] 20 mg PO QAM 11/30/17 [History] Tiotropium [Spiriva] 18 mcg IH BID 11/30/17 [History] Naproxen [Naprosyn] 500 mg PO BID #10 tablet 09/14/18 [Rx] Allergies/Adverse Reactions: Allergy/AdvReac Type Severity Reaction Status Date / Time simvastatin AdvReac See Verified 11/10/17 13:20 Comments Date of admission: 09/13/18 20:41 Primary care physician: Ester Zhou MD - Constitutional Vitals: Temp Pulse Resp BP Pulse Ox 97.7 F 73 14 108/64 93 09/14/18 06:53 09/14/18 06:53 09/14/18 10:04 09/14/18 06:53 09/14/18 10:04 - Patient Status Disposition: Home, Self-Care Condition: Fair - Discharge Instructions Follow Up With: Ester Zhou MD [Primary Care Provider] - - Diet and Activity Activity: resume usual activities as tolerated Diet: advance to your usual diet
--- NOTE | 2018-09-15 14:08 | Electrocardiograph Report ---
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
== END 2018-09-14 13:35 | disposition home or self-care (01) ==
LOC: INPPIK 18:47 → EMEROOPIK 18:47 → INPPIK 20:50
PROVIDERS: ADMIT Internal Medicine; ATTEND Internal Medicine

== ENCOUNTER 2021-05-22 11:35 | Observation (INO) ==
[2021-05-22] MEDS ORDERED: Aspirin 325 MG TABLET PO ONE (11:49)
[2021-05-22] MEDS ORDERED: DILTIAZEM 125 MG/125 ML IVC SCH (12:00)
[2021-05-22] MEDS ORDERED: Furosemide 40 MG/4 ML VIAL IVP ONE (12:08)
[2021-05-22 12:09] LABS: Basophils # 0.1 K/mcL (0.0-0.2); Basophils % 0.6 %; Eosinophils # 0.2 K/mcL (0.0-0.6); Eosinophils % 1.9 %; Hematocrit 46.4 % (37.5-50.1); Immature Granulocytes % 0.3 % (0-4); Lymphocytes # 1.9 K/mcL (0.6-4.6); Lymphocytes % 19.4 %; Mean Corpuscular HGB Conc 34.5 g/dL (31.6-35.5); Mean Corpuscular Hemoglobin 32.9 pg (28.0-33.3); Mean Corpuscular Volume 95.5 fL (83.0-100.0); Mean Platelet Volume 8.8 fL (9.4-12.4); Monocytes # 0.6 K/mcL (0.0-1.3); Monocytes % 5.7 %; Neutrophils # 7.1 K/mcL (1.6-8.9); Platelet Count 224 K/mcL (140-400); Red Blood Count 4.86 M/mcL (4.19-5.50); Red Cell Distribution Width 13.2 % (11.5-14.5); Segmented Neutrophils % 72.1 %; White Blood Count 9.8 K/mcL (4.3-11.1)
[2021-05-22 12:18] LABS: INR 1.3; Prothrombin Time 14.7 Seconds (9.4-12.1)
[2021-05-22 12:20] LABS: Activated Partial Thrombo Time 35.1 Seconds (26.0-36.0)
[2021-05-22 12:28] LABS: BUN/Creatinine Ratio 8 (6-26); Blood Urea Nitrogen 9 mg/dL (6-20); Carbon Dioxide 23 mEq/L (23-29); Chloride 102 mEq/L (98-107); Glucose 88 mg/dL (70-105); Osmolality,Calculated 284 (280-300); Sodium 138 mEq/L (136-145); eGFR For African Americans > 60 (> 60); eGFR For Non-African Americans > 60 (> 60)
[2021-05-22] MEDS ORDERED: Isovue-370 500 ML BOTTLE IVP ONE (12:28)
[2021-05-22 12:29] LABS: Troponin I < 0.03 ng/mL (< 0.04)
[2021-05-22 12:43] LABS: Thyroid Stimulating Hormone 0.578 mcIU/mL (0.340-5.600)
[2021-05-22] MEDS: DILTIAZEM IVC SCH (13:03)
[2021-05-22] MEDS: SODIUM CHLORIDE IVC SCH (13:03)
[2021-05-22] MEDS ORDERED: *HR* Heparin 5,000 UNIT/ML VIAL IVP ONE (13:11)
[2021-05-22 13:15] LABS: Bilirubin,Urine Negative (Negative); Blood,Urine Negative (Negative); Clarity,Urine Clear (Clear); Color,Urine Yellow (Yellow); Glucose,Urine (UA) Normal (Normal); Ketones,Urine 15 mg/dL (Negative); Leukocyte Esterase,Urine Negative (Negative); Nitrite,Urine Negative (Negative); PH,Urine 6.5 pH Units (5.0-8.0); Protein,Urine Negative (Neg-Trace); Specific Gravity,Urine 1.015 (1.010-1.025); Urobilinogen,Urine Normal (Normal)
[2021-05-22] MEDS ORDERED: Heparin 25,000UNIT/250ML 1/2NS 25,000 UNIT/250 ML IV.SOLN IVC SCH (13:15)
[2021-05-22 13:23] LABS: Alanine Aminotransferase 12 Units/L (7-52); Albumin 4.4 g/dL (3.5-5.7); Albumin/Globulin Ratio 1.3 (1.1-2.2); Alkaline Phosphatase 78 Units/L (34-104); Aspartate Amino Transferase 15 Units/L (13-39); Bilirubin,Direct 0.2 mg/dL (0.0-0.2); Bilirubin,Indirect 0.5 mg/dL (0.0-1.0); Bilirubin,Total 0.7 mg/dL (0.3-1.0); Ethanol < 10 mg/dL (Less than 10); Globulin 3.5 g/dL (2.4-3.5); Total Protein 7.9 g/dL (6.4-8.9)
[2021-05-22 13:26] LABS: Amphetamine Screen,Urine Negative ng/mL (Cutoff=1000); Barbiturate Screen,Urine Negative ng/mL (Cutoff=200); Benzodiazepines Screen,Urine Negative ng/mL (Cutoff=200); Cannabinoid Screen,Urine Negative ng/mL (Cutoff = 50); Cocaine Screen,Urine Negative ng/mL (Cutoff= 300); Opiate Screen,Urine Negative ng/mL (Cutoff=300); Phencyclidine Screen,Urine Negative ng/mL (Cutoff=25)
[2021-05-22] MEDS ORDERED: Levalbuterol Neb 1.25 MG/3 ML IH PRN (17:58)
[2021-05-22] MEDS: *HR* OxyCODONE/APAP 5/325 TABLET PO PRN (18:06)
[2021-05-23] MEDS: DILTIAZEM IVC SCH (02:23)
[2021-05-23] MEDS: SODIUM CHLORIDE IVC SCH (02:23)
[2021-05-23] MEDS: *HR* OxyCODONE/APAP 5/325 TABLET PO PRN ×4 (02:26→22:41)
[2021-05-23] MEDS ORDERED: 0.9 % Sodium Chloride 1,000 ML IVC ONE (09:11)
[2021-05-23] MEDS ORDERED: Naloxone 0.4 MG/ML INJ IVP PRN (11:30)
[2021-05-23] MEDS ORDERED: Acetaminophen 325 MG TABLET PO PRN (11:30)
[2021-05-23] MEDS ORDERED: Ondansetron 4 MG/2 ML VIAL IVP PRN (11:30)
[2021-05-23] MEDS: Aspirin Enteric Coated 81 MG Tablet PO SCH (12:26)
[2021-05-23] MEDS: Budesonide/Formoterol 160/4.5 1 PUFF INH IH SCH ×2 (12:36→20:19)
[2021-05-23] MEDS: Ipratropium/Albuterol Neb 3 ML IH SCH ×3 (12:36→20:19)
[2021-05-23] MEDS ORDERED: *HR* Rivaroxaban 10 MG TABLET PO SCH (17:00)
[2021-05-23] MEDS ORDERED: Perflutren Lipid Microsphere 1.3 ML in 0.9 % Sodium Chloride 8.7 ML IVP PRN (17:17)
[2021-05-23] MEDS: MethylPREDNISolone 40 MG/ML VIAL IVP SCH (17:51)
[2021-05-23] MEDS: Nicotine 21 MG PATCH.TD24 TD SCH (17:52)
[2021-05-24] MEDS: Ipratropium/Albuterol Neb 3 ML IH SCH ×4 (00:11→12:39)
[2021-05-24] MEDS: MethylPREDNISolone 40 MG/ML VIAL IVP SCH (05:29)
[2021-05-24 05:31] LABS: Hematocrit 37.8 % (37.5-50.1); Hemoglobin 12.9 g/dL (12.9-16.9); Mean Corpuscular HGB Conc 34.1 g/dL (31.6-35.5); Mean Corpuscular Hemoglobin 32.6 pg (28.0-33.3); Mean Corpuscular Volume 95.5 fL (83.0-100.0); Mean Platelet Volume 8.8 fL (9.4-12.4); Platelet Count 191 K/mcL (140-400); Red Blood Count 3.96 M/mcL (4.19-5.50); Red Cell Distribution Width 12.9 % (11.5-14.5); White Blood Count 6.7 K/mcL (4.3-11.1)
[2021-05-24 06:34] LABS: BUN/Creatinine Ratio 17 (6-26); Blood Urea Nitrogen 15 mg/dL (6-20); Calcium 8.9 mg/dL (8.6-10.3); Carbon Dioxide 21 mEq/L (23-29); Chloride 106 mEq/L (98-107); Chol/HDL Ratio 3.3 (0-4.9); Cholesterol 98 mg/dL (< 200); Glucose 134 mg/dL (70-105); HDL Cholesterol 30 mg/dL (40-59); LDL Cholesterol,Calculated 56 mg/dL (< 100); Osmolality,Calculated 283 (280-300); Potassium 4.3 mEq/L (3.5-5.1); Sodium 135 mEq/L (136-145); Triglycerides 61 mg/dL (< 150); eGFR For African Americans > 60 (> 60); eGFR For Non-African Americans > 60 (> 60)
[2021-05-24 07:48] VITALS: BP 108/65; PULSE 77; TEMP 98
[2021-05-24] MEDS: Budesonide/Formoterol 160/4.5 1 PUFF INH IH SCH (08:09)
[2021-05-24] MEDS: *HR* OxyCODONE/APAP 5/325 TABLET PO PRN (08:45)
[2021-05-24] MEDS: Nicotine 21 MG PATCH.TD24 TD SCH (08:46)
[2021-05-24] MEDS: Aspirin Enteric Coated 81 MG Tablet PO SCH (08:46)
[2021-05-24 10:30] LABS: Adenovirus Not Detected (Not Detect); Bordetella Pertussis Not Detected (Not Detect); Coronavirus 229E Not Detected (Not Detect); Coronavirus HKU1 Not Detected (Not Detect); Coronavirus NL63 Not Detected (Not Detect); Coronavirus OC43 Not Detected (Not Detect); Human Metapneumovirus Not Detected (Not Detect); Human Rhinovirus/Enterovirus Not Detected (Not Detect); Influenza A Subtype 2009 H1 Not Detected (Not Detect); Influenza B Not Detected (Not Detect); Parainfluenza Virus 1 Not Detected (Not Detect); Parainfluenza Virus 2 Not Detected (Not Detect); Parainfluenza Virus 3 Not Detected (Not Detect); Parainfluenza Virus 4 Not Detected (Not Detect); Respiratory Syncytial Virus Not Detected (Not Detect); SARS-CoV-2 Not Detected (Not Detect)
[2021-05-24 10:31] LABS: Chlamydophila pneumoniae Not Detected (Not Detect); Mycoplasma pneumoniae Not Detected (Not Detect)
[2021-05-24 13:22] VITALS: RESP 20; O2SAT 94
== END 2021-05-24 13:20 | disposition home or self-care (01) ==
LOC: EMEROOPIK 11:35 → INPPIK 11:35
PROVIDERS: ADMIT Family Medicine; ATTEND Family Medicine